=== PATIENT | female | born 1990 | race Caucasian/White ===

== ENCOUNTER 2017-02-21 20:34 | Emergency (ER) | payer BC, OTHER ==
[~2017-02-21] VITALS: Ht 157.5 cm; Wt 93.5 kg
[~2017-02-21 20:34] MED LIST: CALC600T11 PO; FOLI-49 PO; PREN1TAB17 PO
[2017-02-21 20:45] VITALS: Ht 157.5 cm; Wt 93.5 kg
--- NOTE | 2017-02-21 21:46 | RADRPT ---
PROCEDURE: XR Chest AP portable CLINICAL INDICATION: Cough TECHNIQUE: An AP portable radiograph of the chest was submitted. COMPARISON: None. FINDINGS: Support Hardware: None Cardiovascular: The cardiovascular silhouette appears unremarkable. Lung Jose: The lung jose appear clear with no nodule, alveolar infiltrate, or interstitial promi nence evident. Pleural Spaces: No pneumothorax or pleural effusion is identified. Osseous Structures: The osseous structures appear intact. Soft Tissues: The soft tissues appear unremarkable. IMPRESSION: Unremarkable portable chest. Physician Shwetha Date Time Electronically viewed and signed by Joss Wolfe Physician on 02/21/2017 21:46 /
[2017-02-21] MEDS ORDERED: BENZ100C70 PO (21:53)
[2017-02-21] MEDS ORDERED: IBUP400T22 PO (21:53)
[2017-02-21] MEDS ORDERED: LORA-186 PO (21:53)
--- NOTE | 2017-02-21 22:06 | ERD ---
ER Documentation Chief Complaint Date/Time DATE: 02/21/17 TIME: 22:04 Chief Complaint cough fever off and on x2 weeks HPI This is a 26-year-old female presenting to the emergency department complaining of cough, fever, nasal congestion for the past 2 weeks. Patient states that her cough is intermittent on and off for the past 2 weeks. She states that she does have midsternal chest pain when she coughs. She denies any fevers or shortness of breath. She denies taking any medications for this ROS All systems reviewed and are negative except as per history of present illness. Medications Home Meds Active Scripts Ibuprofen* (Ibuprofen*) 400 Mg Tablet, 400 MG PO Q6H Y for PAIN, #30 TAB Prov:DAMARIS MARLEY PA-C 02/21/17 Loratadine* (Claritin*) 10 Mg Tablet, 10 MG PO DAILY, #20 TAB Prov:DAMARIS MARLEY PA-C 02/21/17 Benzonatate* (Tessalon Perle*) 100 Mg Capsule, 100 MG PO Q8H Y for COUGH, #30 CAP Prov:DAMARIS MARLEY PA-C 02/21/17 Reported Medications Folic Acid* (Folic Acid*) 1 Mg Tablet, 1 MG PO DAILY, TAB 04/27/16 Calcium Carbonate* (Calcium Carbonate*) 600 MG Ca Tab, 600 MG PO DAILY, TAB 04/27/16 Vit-Iron Fumarate-FA ( Tablet) 1 Each Tablet, 1 TAB PO DAILY, TAB 04/27/16 Allergies Allergies: Coded Allergies: No Known Allergy (Unverified , 05/22/16) PMhx/Soc History of Surgery: Yes (GALLBLADDER SURGERY) Anesthesia Reaction: No Hx Neurological Disorder: No Hx Respiratory Disorders: No Hx Cardiac Disorders: No Hx Psychiatric Problems: No Hx Miscellaneous Medical Probl: No Hx Alcohol Use: No Hx Substance Use: No Hx Tobacco Use: No Smoking Status: Never smoker Physical Exam Vitals Vital Signs Date Time Temp Pulse Resp B/P Pulse Ox O2 Delivery O2 Flow Rate FiO2 02/21/17 20:45 97.3 83 20 120/74 97 Physical Exam GENERAL: well-developed/well-nourished, in no apparent distress, non-toxic appearing HEAD: NC/AT, no swelling noted in frontal or maxillary areas EARS: bilateral tympanic membrane is intact without erythema or effusion NARES: nares patent, rhinorrhea and congested THROAT: oropharynx erythematous without exudates, no tonsil enlargement, post nasal drip EYES: Conjunctiva normal NECK: Supple, no lymphadenopathy PULM: CTA bilaterally, no rales, rhonchi, or wheezing heard CV: Normal S1S2, RRR, good capillary refill GI: Soft, non-distended, normal bowel sounds, non-tender BACK: No midline tenderness, no masses EXT No clubbing, cyanosis, or edema NEURO: Alert and Orientated SKIN: Intact, normal turgor PSYCH: Normal mood and mentation Procedures/MDM MDM: 26-year-old female presents to the ER with upper respiratory infection, which is most likely viral. My clinical suspicion is low suspicion for pneumonia , strep pharyngitis, or pulmonary emergencies due to physical examination. Patient's lungs were clear on examination. Chest x-ray did not show any evidence of infiltrates, pneumothorax or pleural effusion DISPOSITION: hemodynamically stable for discharge. Prescription for Tessalon Perles, Claritin or ibuprofen was given to patient, discussed to return to the ED if not improving as expected or follow-up with a primary care physician. Patient understood and agreed with this plan. Departure Diagnosis: Primary Impression: URI (upper respiratory infection) Condition: Stable Patient Instructions: Preventing Common Respiratory Infections, Uri, Viral, No Abx (Adult) Additional Instructions: FOLLOW UP WITH YOUR PRIMARY CARE PHYSICIAN TOMORROW.Return to this facility if you are not improving as expected. Return to this facility if you are not improving as expected. Take all medicines as directed. DAMARIS MARLEY PA-C Feb 21, 2017 22:05
[2017-02-21 22:22] VITALS: BP 120/74; RESP 20; TEMP 97.4
== END 2017-02-21 22:23 | disposition home or self-care (01) ==
LOC: FTE 20:34
DX: J06.9 Acute upper respiratory infection, unspecified (principal)
CPT/HCPCS: 71010

== ENCOUNTER 2017-07-17 19:41 | Emergency (ER) | payer BC, MEDICAID ==
[~2017-07-17] VITALS: Ht 162.6 cm; Wt 94.8 kg
[~2017-07-17 19:41] MED LIST changes: +BENZ100C70 PO; -CALC600T11 PO; +CALC600T24 PO; +IBUP400T22 PO; +LORA-186 PO
[2017-07-17 19:58] VITALS: Ht 162.6 cm; Wt 94.8 kg
[2017-07-17 20:39] VITALS: PULSE 99; TEMP 99
[2017-07-17] MEDS ORDERED: IBUP-1542 PO (20:40)
[2017-07-17] MEDS ORDERED: ONDA4TAB14 PO (20:40)
[2017-07-17] MEDS ORDERED: ACET500C5 PO (20:40)
--- NOTE | 2017-07-17 20:58 | ERD ---
ER Documentation Chief Complaint Chief Complaint AP today, emesis x2 today. +nausea. denies urinary symptoms HPI 26-year-old female presents to emergency department for vomiting episodes bodyaches nausea fever abdominal pain started today. Patient gives her sick with the same symptoms. Patient started with vomiting episodes that started to have epigastric pain afterwards, epigastric pain is resolved. Patient denies any abdominal pain at the time. Patient denies any blood in her vomit. Patient denies any diarrhea or constipation. Patient denies any hematuria or dysuria. Took Tylenol prior to coming here in emergency department ROS All systems reviewed and are negative except as per history of present illness. Medications Home Meds Active Scripts Ibuprofen* (Motrin*) 600 Mg Tab, 600 MG PO Q6H Y for PAIN AND OR ELEVATED TEMP, #30 TAB Prov:NATALIE HERNANDEZ NP 07/17/17 Acetaminophen* (Tylophen*) 500 Mg Capsule, 1 CAP PO Q6H Y for PAIN AND OR ELEVATED TEMP, #20 CAP Prov:NATALIE HERNANDEZ NP 07/17/17 Ondansetron (Ondansetron Odt) 4 Mg Tab.rapdis, 4 MG PO Q6H Y for NAUSEA AND/OR VOMITING, #20 TAB Prov:NATALIE HERNANDEZ NP 07/17/17 Allergies Allergies: Coded Allergies: No Known Allergy (Unverified , 07/17/17) PMhx/Soc Medical and Surgical Hx: pt denies Medical Hx, pt denies Surgical Hx FmHx Family History: No coronary disease, No diabetes, No other Physical Exam Vitals Vital Signs Date Time Temp Pulse Resp B/P Pulse Ox O2 Delivery O2 Flow Rate FiO2 07/17/17 20:39 99.0 99 07/17/17 19:58 100.1 127 18 114/80 97 Recheck temperature was lower, patient took Tylenol prior to coming here in emergency department heart rate was also improved to 99 bpm Physical Exam GENERAL: The patient is well developed and appropriate for usual state of health, in no apparent distress. CHEST: Clear to auscultation bilaterally. There are no rales, wheezes or rhonchi. HEART: Regular rate and rhythm. No murmurs, clicks, rubs or gallops. No S3 or S4. ABDOMEN: Soft, nontender and nondistended. Good bowel sounds. No rebound or guarding. No gross peritonitis. No gross organomegaly or masses. No Melendez sign or McBurney point tenderness. BACK: No midline or flank tenderness. EXTREMITIES: Equal pulses bilaterally. There is no peripheral clubbing, cyanosis or edema. No focal swelling or erythema. Full range of motion. Grossly neurovascularly intact. NEURO: Alert and oriented. Cranial nerves 2-12 intact. Motor strength in all 4 extremities with 5/5 strength. Sensation grossly intact. Normal speech and gait. SKIN: There is no apparent rash or petechia. The skin is warm and dry. HEMATOLOGIC AND LYMPHATIC: There is no evidence of excessive bruising or lymphedema. No gross cervical, axillary, or inguinal lymphadenopathy. Procedures/MDM Medical Decision Making: Patient symptoms of vomiting abdominal pain bodyaches fever and viral illness. She does not complain of abdominal pain at this time. Patient states her sick with the same symptoms. No active vomiting at this time. No symptoms of any dehydration. No risk factors. There is low suspicion for abdominal emergencies at this time. Patients abdominal exam is normal at this time. Radiology exams or laboratory testing not indicated at this time there is low suspicion for appendicitis, cholecystitis, abdominal aortic aneurysms or peritonitis at this time. There is low suspicion for sepsis. Patient appears well and is hemodynamically stable. Disposition: Home. Condition: Stable Prescription ibuprofen, Tylenol, Zofran. Instructions: Patient is advised to take medications as prescribed. Patient is advised to rest, increase fluid intake and do brat diet for next 1-2 days and progress as tolerated. Patient is advised that if symptoms are worse, severe abdominal pain, uncontrolled vomiting, high fever, severe flank pain, worst signs and symptoms, to return to the emergency department immediately. Otherwise, patient can follow up with primary care doctor in 5-7 days. Disclaimer: Inadvertent spelling and grammatical errors are likely due to EHR/ dictation software use and do not reflect on the overall quality of patient care. Also, please note that the electronic time recorded on this note does not necessarily reflect the actual time of the patient encounter. Departure Diagnosis: Primary Impression: Vomiting Vomiting type: unspecified Vomiting Intractability: unspecified Nausea presence: unspecified Qualified Code: R11.10 - Vomiting, intractability of vomiting not specified, presence of nausea not specified, unspecified vomiting type Condition: Stable Patient Instructions: Vomiting (6Y-Adult) NATALIE HERNANDEZ NP Jul 17, 2017 20:58
== END 2017-07-17 20:49 | disposition home or self-care (01) ==
LOC: E/R 19:41 → MERGE 19:41 → E/R 20:49
DX: R11.10 Vomiting, unspecified (principal)
CPT/HCPCS: 99283

== ENCOUNTER 2018-07-23 20:16 | Emergency (ER) | payer BC ==
[~2018-07-23] VITALS: Ht 157.5 cm; Wt 95.3 kg
[~2018-07-23 20:16] MED LIST changes: +ACET500C5 PO; +BENZ-6 PO; -BENZ100C70 PO; +IBUP-1541 PO; +IBUP-1542 PO; -IBUP400T22 PO; +ONDA4TAB14 PO
[2018-07-23 20:41] VITALS: BP 130/82; PULSE 102; RESP 20; Ht 157.5 cm; Wt 95.3 kg
[2018-07-23] MEDS ORDERED: ONDANSETRON (ODT) 4 MG TAB ODT STA (23:28)
[2018-07-23] MEDS ORDERED: ACETAMINOPHEN 325 MG TAB PO ONE (23:30)
[2018-07-23] MEDS ORDERED: ONDA8TAB14 PO (23:37)
[2018-07-23] MEDS ORDERED: ACET500C5 PO (23:37)
--- NOTE | 2018-07-23 23:39 | ERD ---
ER Documentation Chief Complaint Chief Complaint fever cough vomiting and diarrhea since saturday HPI 27-year-old female with cough, vomiting, diarrhea for last 4 days. She may have had fever at home but no fever triage. She denies abdominal pain. She is here with her 2 children with similar symptoms for similar duration. She denies . ROS All systems reviewed and are negative except as per history of present illness. Medications Home Meds Active Scripts Ondansetron (Ondansetron Odt) 8 Mg Tab.rapdis, 8 MG PO Q6H PRN for NAUSEA AND/OR VOMITING, #6 TAB Prov:JUAN RAMON PLEITEZ MD 07/23/18 Acetaminophen* (Tylophen*) 500 Mg Capsule, 1 CAP PO Q6H PRN for PAIN AND OR ELEVATED TEMP, #15 CAP Prov:JUAN RAMON PLEITEZ MD 07/23/18 Ibuprofen* (Motrin*) 600 Mg Tab, 600 MG PO Q6H PRN for PAIN AND OR ELEVATED TEMP, #30 TAB Prov:NATALIE HERNANDEZ NP 07/17/17 Acetaminophen* (Tylophen*) 500 Mg Capsule, 1 CAP PO Q6H PRN for PAIN AND OR ELEVATED TEMP, #20 CAP Prov:NATALIE HERNANDEZ NP 07/17/17 Ondansetron (Ondansetron Odt) 4 Mg Tab.rapdis, 4 MG PO Q6H PRN for NAUSEA AND/OR VOMITING, #20 TAB Prov:NATALIE HERNANDEZ NP 07/17/17 Ibuprofen* (Ibuprofen*) 400 Mg Tablet, 400 MG PO Q6H PRN for PAIN, #30 TAB Prov:DAMARIS MARLEY PA-C 02/21/17 Loratadine* (Claritin*) 10 Mg Tablet, 10 MG PO DAILY, #20 TAB Prov:DAMARIS MARLEY PA-C 02/21/17 Benzonatate* (Tessalon Perle*) 100 Mg Capsule, 100 MG PO Q8H PRN for COUGH, #30 CAP Prov:DAMARIS MARLEY PA-C 02/21/17 Reported Medications Folic Acid* (Folic Acid*) 1 Mg Tablet, 1 MG PO DAILY, TAB 04/27/16 Calcium Carbonate* (Calcium Carbonate*) 600 MG Ca Tab, 600 MG PO DAILY, TAB 04/27/16 Vit-Iron Fumarate-FA ( Tablet) 1 Each Tablet, 1 TAB PO DAILY, TAB 04/27/16 Allergies Allergies: Coded Allergies: No Known Allergy (Unverified , 05/22/16) PMhx/Soc Medical and Surgical Hx: pt denies Medical Hx, pt denies Surgical Hx History of Surgery: Yes (GALLBLADDER SURGERY) Anesthesia Reaction: No Hx Neurological Disorder: No Hx Respiratory Disorders: No Hx Cardiac Disorders: No Hx Psychiatric Problems: No Hx Miscellaneous Medical Probl: No Hx Alcohol Use: No Hx Substance Use: No Hx Tobacco Use: No Smoking Status: Never smoker FmHx Family History: No diabetes, No coronary disease, No other Physical Exam Vitals Vital Signs Date Temp Pulse Resp B/P (MAP) Pulse Ox O2 O2 Flow FiO2 Time Delivery Rate 07/23/18 99.4 23:38 07/23/18 99.4 102 20 130/82 98 20:41 (98) Physical Exam Const: No acute distress Head: Atraumatic Eyes: Normal Conjunctiva ENT: Normal External Ears, Nose and Mouth. TMs and oropharynx normal. Neck: Full range of motion. No meningismus. Resp: Clear to auscultation bilaterally Cardio: Regular rate and rhythm, no murmurs Abd: Soft, non tender, non distended. Normal bowel sounds Skin: No petechiae or rashes Back: No midline or flank tenderness Ext: No cyanosis, or edema Neur: Awake and alert Psych: Normal Mood and Affect Results 24 hrs Current Medications Medications Dose Sig/Donald Start Time Status Last (Trade) Ordered Route PRN Stop Time Admin Dose Reason Admin 650 mg ONCE ONCE 07/23/18 DC 07/23/18 Acetaminophen PO 23:30 07/23/18 23:38 (Tylenol 23:31 Tab) Ondansetron 8 mg ONCE STAT 07/23/18 DC 07/23/18 HCl (Zofran ODT 23:28 07/23/18 23:36 Odt) 23:29 Procedures/MDM Well-appearing patient with cough, vomiting and diarrhea for last 4 days. She likely has a viral syndrome. There is no signs of abdominal pain, hypoxemia, pneumonia, additional emergent causes of presenting complaints. We will treat with Zofran, Tylenol, primary care follow-up and return precautions. Departure Diagnosis: Primary Impression: Vomiting Vomiting type: unspecified Vomiting Intractability: unspecified Nausea presence: unspecified Qualified Codes: R11.10 - Vomiting, unspecified Additional Impression: Multiple complaints Condition: Stable Patient Instructions: Vomiting (4Y-Adult) Additional Instructions: Likely viral illness should resolve in the next few days. Recheck for new or worsening symptoms with primary care doctor. JUAN RAMON PLEITEZ MD Jul 23, 2018 23:39
== END 2018-07-23 23:59 | disposition home or self-care (01) ==
LOC: FTE 20:16
DX: R11.10 Vomiting, unspecified (principal); R19.7 Diarrhea, unspecified
CPT/HCPCS: 99283; Z7610

== ENCOUNTER 2018-11-22 00:15 | Emergency (ER) | payer BC ==
[~2018-11-22] VITALS: Ht 157.5 cm; Wt 95.0 kg
[~2018-11-22 00:15] MED LIST changes: +ONDA8TAB14 PO
[2018-11-22 00:20] VITALS: BP 127/79; PULSE 84; RESP 16; Ht 157.5 cm; Wt 95.0 kg
[2018-11-22] MEDS ORDERED: ONDANSETRON (ODT) 4 MG TAB ODT STA (05:47)
[2018-11-22] MEDS ORDERED: ACETAMINOPHEN 325 MG TAB PO ONE (06:00)
[2018-11-22] MEDS ORDERED: ACET-141 PO (06:16)
[2018-11-22] MEDS ORDERED: ONDA4TAB14 PO (06:16)
--- NOTE | 2018-11-22 06:30 | ERD ---
ER Documentation Chief Complaint Chief Complaint forehead laceration s/p mirror falling on head 15 mins ago. no KO HPI 27-year-old female no significant past medical history no other modifying factors noted. No other treatment tried at home. Presents for headache and dizziness status post accident x1 day. She states that the mirror on her closet door fell on her and hit her head. She states that the mirror is relatively heavy. She has a small cut over the left side of the forehead. She states that she has headache that is rated 6 out of 10. Mostly on the left side of the head where the injury happened, she rates pain a 6 out of 10, described as a sharp pain. Denies loss of consciousness or vomiting. She does have nausea however. No other modifying factors noted, no treatments tried at home. ROS All systems reviewed and are negative except as per history of present illness. Medications Home Meds Active Scripts Acetaminophen* (Acetaminophen*) 500 MG Extra Strength Tablet, 500 MG PO Q4H PRN for PAIN AND OR ELEVATED TEMP, #30 TAB Prov:REENA HAILE DO 11/22/18 Ondansetron (Ondansetron Odt) 4 Mg Tab.rapdis, 4 MG PO Q6H PRN for NAUSEA AND/OR VOMITING, #20 TAB Prov:REENA HAILE DO 11/22/18 Ondansetron (Ondansetron Odt) 8 Mg Tab.rapdis, 8 MG PO Q6H PRN for NAUSEA AND/OR VOMITING, #6 TAB Prov:JUAN RAMON PLEITEZ MD 07/23/18 Acetaminophen* (Tylophen*) 500 Mg Capsule, 1 CAP PO Q6H PRN for PAIN AND OR ELEVATED TEMP, #15 CAP Prov:JUAN RAMON PLEITEZ MD 07/23/18 Ibuprofen* (Motrin*) 600 Mg Tab, 600 MG PO Q6H PRN for PAIN AND OR ELEVATED TEMP, #30 TAB Prov:NATALIE HERNANDEZ NP 07/17/17 Acetaminophen* (Tylophen*) 500 Mg Capsule, 1 CAP PO Q6H PRN for PAIN AND OR ELEVATED TEMP, #20 CAP Prov:NATALIE HERNANDEZ NP 07/17/17 Ondansetron (Ondansetron Odt) 4 Mg Tab.rapdis, 4 MG PO Q6H PRN for NAUSEA AND/OR VOMITING, #20 TAB Prov:NATALIE HERNANDEZParam MCGRAW 07/17/17 Ibuprofen* (Ibuprofen*) 400 Mg Tablet, 400 MG PO Q6H PRN for PAIN, #30 TAB Prov:DAMARIS MARLEY PA-C 02/21/17 Loratadine* (Claritin*) 10 Mg Tablet, 10 MG PO DAILY, #20 TAB Prov:DAMARIS MARLEY PA-C 02/21/17 Benzonatate* (Tessalon Perle*) 100 Mg Capsule, 100 MG PO Q8H PRN for COUGH, #30 CAP Prov:DAMARIS MARLEY PA-C 02/21/17 Reported Medications Folic Acid* (Folic Acid*) 1 Mg Tablet, 1 MG PO DAILY, TAB 04/27/16 Calcium Carbonate* (Calcium Carbonate*) 600 MG Ca Tab, 600 MG PO DAILY, TAB 04/27/16 Vit-Iron Fumarate-FA ( Tablet) 1 Each Tablet, 1 TAB PO DAILY, TAB 04/27/16 Allergies Allergies: Coded Allergies: No Known Allergy (Unverified , 05/22/16) PMhx/Soc Medical and Surgical Hx: pt denies Medical Hx Anesthesia Reaction: No Hx Neurological Disorder: No Hx Respiratory Disorders: No Hx Cardiac Disorders: No Hx Psychiatric Problems: No Hx Miscellaneous Medical Probl: No Hx Alcohol Use: No Hx Substance Use: No Hx Tobacco Use: No FmHx Family History: No coronary disease Physical Exam Vitals Vital Signs Date Temp Pulse Resp B/P (MAP) Pulse Ox O2 O2 Flow FiO2 Time Delivery Rate 11/22/18 99.5 84 16 127/79 98 00:20 (95) Physical Exam Const: No acute distress Head: Atraumatic, no temporal area tenderness to palpation Eyes: Normal Conjunctiva, pupils equal, round, reactive to light bilaterally ENT: Normal External Ears, bilateral tympanic membrane intact without erythema or bulging noted, Nose and Mouth examination normal. No tonsillar swelling or exudate noted Neck: Full range of motion. No meningismus, no bruits noted Resp: Clear to auscultation bilaterally Cardio: Regular rate and rhythm, no murmurs, bilateral radial and dorsalis pedis pulses intact Skin: No petechiae or rashes, there is a superficial abrasion noted over the left side of the forehead Ext: No cyanosis, or edema, 5 out of 5 muscular bilateral upper and lower extremities Neur: Awake and alert, bilateral upper and lower extremity sensation intact Psych: Normal Mood and Affect Results 24 hrs Current Medications Medications Dose Sig/Donald Start Time Status Last (Trade) Ordered Route PRN Stop Time Admin Dose Reason Admin 650 mg ONCE ONCE 11/22/18 DC 11/22/18 Acetaminophen PO 06:00 11/22/18 05:56 (Tylenol 06:01 Tab) Ondansetron 4 mg ONCE STAT 11/22/18 DC 11/22/18 HCl (Zofran ODT 05:47 11/22/18 06:03 Odt) 05:48 Procedures/MDM Medical Decision Makin-year-old female presents for headache status post head injury. Patient neurovascularly intact. In the ER patient given Tylenol and Zofran Symptoms improved with treatment. There is no laceration over the left forehead. There was however an abrasion. Patient advised regarding wound care. Patient given prescription for supportive medication(s). Patient advised to follow up with PCP in 1-2 days. Patient advised to return to ED for new or worsening symptoms. Patient stable on discharge from the ED. Disclaimer: Inadvertent spelling and grammatical errors are likely due to EHR/dictation software use and do not reflect on the overall quality of patient care. Also, please note that the electronic time recorded on this note does not necessarily reflect the actual time of the patient encounter. Departure Diagnosis: Primary Impression: Head injury Encounter type: initial encounter Qualified Codes: S09.90XA - Unspecified injury of head, initial encounter Condition: Fair Patient Instructions: HEAD INJURY, No Wake-Up (Adult) Referrals: [facility] YOU HAVE RECEIVED A MEDICAL SCREENING EXAM AND THE RESULTS INDICATE THAT YOU DO NOT HAVE A CONDITION THAT REQUIRES URGENT TREATMENT IN THE EMERGENCY DEPARTMENT. FURTHER EVALUATION AND TREATMENT OF YOUR CONDITION CAN WAIT UNTIL YOU ARE SEEN IN YOUR DOCTORS OFFICE WITHIN THE NEXT 1-2 DAYS. IT IS YOUR RESPONSIBILITY TO MAKE AN APPOINTMENT FOR FOLOW-UP CARE. IF YOU HAVE A PRIMARY DOCTOR --you should call your primary doctor and schedule an appointment IF YOU DO NOT HAVE A PRIMARY DOCTOR YOU CAN CALL OUR PHYSICIAN REFERRAL HOTLINE AT IF YOU CAN NOT AFFORD TO SEE A PHYSICIAN YOU CAN CHOSE FROM THE FOLLOWING COMMUNITY CLINICS [facility] [address] [facility] [address] [facility] [address] [facility] [address] [facility] [facility] [address] [facility] [facility] [address] Additional Instructions: Call your primary care doctor TOMORROW for an appointment during the next 1-2 days.See the doctor sooner or return here if your condition worsens before your appointment time. REENA HAILE DO November 22, 2018 06:30
== END 2018-11-22 06:36 | disposition home or self-care (01) ==
LOC: FTE 00:15
DX: S00.81XA Abrasion of other part of head, initial encounter (principal); W20.8XXA Other cause of strike by thrown, projected or falling object, initial encounter; Y92.9 Unspecified place or not applicable
CPT/HCPCS: 99283; Z7610